=== PATIENT | male | born 1970 | race Caucasian/White ===

== ENCOUNTER 2017-01-17 15:05 | Emergency (ER) | payer MEDICAID ==
[~2017-01-17] VITALS: Ht 170.2 cm; Wt 99.8 kg
[2017-01-17 15:21] VITALS: BP 155/102
--- NOTE | 2017-01-17 16:20 | NUR ---
PT AMBULATED TO BED 8
--- NOTE | 2017-01-17 16:25 | NUR ---
46/M TO ED WITH C/O RIGHT ANKLE PAIN STARTING LAST NIGHT S/P ROLLING ANKLE. PAIN 8/10. PEDAL PULSES PRESENT BILAT. LUNGS CLEAR BILAT. HR EVEN AND REGULAR. AAOX4. VSS. NO SIGNS OF DISTRESS.
[2017-01-17 16:54] VITALS: BP 155/102
== END 2017-01-17 16:54 | disposition home or self-care (01) ==
LOC: MED 15:05
DX: M25.571 Pain in right ankle and joints of right foot (principal)
CPT/HCPCS: 73610; 96372; 99284

== ENCOUNTER 2017-02-19 09:13 | Inpatient (IN) | payer MEDICAID ==
[~2017-02-19] VITALS: Ht 170.2 cm; Wt 100.7 kg
[2017-02-19 09:21] VITALS: BP 154/93
--- NOTE | 2017-02-19 09:29 | NUR ---
PT TO BED 3.
--- NOTE | 2017-02-19 09:30 | NUR ---
PATIENT PRESENTS TO ED WITH C/O CHEST PAIN . PT STATES THE CHEST PAIN STARTED AT 2400, AND HAS NOT DISSIPATED . DENIES N/V/D; SKIN IS PALE/WARM/DIAPHORETIC; AAOX4 WITH EVEN AND STEADY GAIT; LUNGS CLEAR BL; HR EVEN AND REGULAR; PT DENIES ANY FEVER, SOB, OR COUGH AT THIS TIME; PATIENT STATES PAIN OF 8/10 AT THIS TIME; VSS; PATIENT POSITIONED FOR COMFORT; HOB ELEVATED; BEDRAILS UP X2; BED DOWN. ER MD MADE AWARE OF PT STATUS.
--- NOTE | 2017-02-19 09:53 | NUR ---
Ciara AT BEDSIDE.
--- NOTE | 2017-02-19 09:53 | NUR ---
Dr. Zeng evaluating patient at bedside.
[2017-02-19] MEDS ORDERED: ALUMINUM HYD/MAG/SIMETHICONE 30 ML UDC PO ONE (10:00)
[2017-02-19] MEDS ORDERED: ASPIRIN 81 MG TAB.CHEW PO ONE (10:00)
[2017-02-19] MEDS ORDERED: ONDANSETRON 4 MG/2 ML VIAL IVP ONE ×2 (10:00)
[2017-02-19] MEDS ORDERED: FAMOTIDINE 20 MG/2 ML VIAL IVP ONE (10:00)
--- NOTE | 2017-02-19 10:03 | NUR ---
X-RAY AT BEDSIDE.
--- NOTE | 2017-02-19 10:22 | NUR ---
IV ESTABLISHED, 20 G LEFT AC.
[2017-02-19 10:38] LABS: ALBUMIN 3.6 g/dL (3.4-5.0); ANION GAP 6.7 (8-16); CARBON DIOXIDE 32.3 mmol/L (21-32); CREATININE 0.8 mg/dL (0.6-1.3); TOTAL BILIRUBIN 0.6 mg/dL (0.0-1.0); TOTAL PROTEIN, SERUM 7.4 g/dL (6.4-8.2)
[2017-02-19 10:41] LABS: PARTIAL THROMBOPLASTIN TIME 25.9 secs (22-35.6); PROTHROMBIN TIME 10.5 secs (10.8-13.4)
[2017-02-19] MEDS ORDERED: POTASSIUM CHLORIDE 10 MEQ TABER PO ONE (10:50)
[2017-02-19 10:53] LABS: HEMATOCRIT 46.8 % (36-52); HEMOGLOBIN 15.4 g/dL (12.0-18.0); MEAN CORPUSCULAR HEMOGLOBIN 29 pg (27-31); MEAN CORPUSCULAR HGB CONC 33 g/dL (33-37); MEAN CORPUSCULAR VOLUME 88 fL (80-94); PLATELET COUNT (AUTO) 235 K/uL (140-450); RED BLOOD CELL COUNT(AUTO) 5.34 MIL/uL (4.20-6.10); RED CELL DISTRIBUTION WIDTH 12.7 % (11.6-13.7); WHITE BLOOD COUNT (AUTO) 6.6 K/uL (4.8-10.8)
--- NOTE | 2017-02-19 10:56 | NUR ---
MEDICATION ADMINISTERED ORDERED.
[2017-02-19 11:05] LABS: BAND % (MANUAL) 3 % (0-8); LYMPHOCYTES % (MANUAL) 25 % (20-46); MONOCYTES % (MANUAL) 11 % (5-12); NEUTROPHILS % (MANUAL) 61 (43-65)
[2017-02-19] MEDS ORDERED: LORazepam 2 MG/ML VIAL IVP ONE (11:30)
[2017-02-19] MEDS ORDERED: NACL 0.9% 1,000 ML IV ONE (11:30)
[2017-02-19] MEDS ORDERED: HYDROcodone/APAP 5/325 MG 1 TAB TAB PO PRN (11:35)
[2017-02-19] MEDS ORDERED: ONDANSETRON 4 MG/2 ML VIAL IVP PRN (11:35)
[2017-02-19] MEDS ORDERED: MORPHINE SULFATE 2 MG/ML SYR IVP PRN (11:35)
--- NOTE | 2017-02-19 11:36 | NUR ---
Patient will be admitted to care of DR. VIDAL. Admited to TELE. Will go to room 111-A. Belongings list completed. Report to MAGED BANERJEE.
[2017-02-19 11:48] VITALS: BP 140/85
--- NOTE | 2017-02-19 11:48 | NUR ---
RECEIVED PT FROM ER NURSE. PT IS AAOX4 AND SHOWS NO S/S OF DISTRESS ON ROOM AIR. PT AMB TO BED WITH STEADY GAIT. NOTED IV 20G ON THE L AC. PT SKIN IS INTACT. PT STATES NO PAIN AT THIS TIME. PT WAS EDUCATED OF HIS POC FOR TODAY AND VERBALIZED UNDERSTANDING. PT'S BED IS LOWERED WITH CALL LIGHT WITHIN REACH. WILL CONTINUE TO MONITOR.
[2017-02-19] MEDS ORDERED: LISINOPRIL 5 MG TAB PO SCH (11:52)
[2017-02-19] MEDS ORDERED: METOPROLOL 25 MG TAB PO SCH (11:53)
--- NOTE | 2017-02-19 12:15 | NUR ---
PT IS RESTING IN BED AND SHOWS NO S/S OF DISTRESS ON ROOM AIR. PT WAS GIVEN A CONSENT FORM FOR CT WITH CONTRAST PROCEDURE THAT WILL DONE LATER TODAY. PT VERBALIZED UNDERSTANDING OF PROCEDURE AND QUESTIONS ASKED. PT CALL LIGHT IS WITHIN REACH. WILL CONTINUE TO MONITOR.
[2017-02-19] MEDS: NACL 0.9% 1,000 ML IV SCH ×2 (14:11→18:41)
--- NOTE | 2017-02-19 15:15 | NUR ---
PT IS BEING SEEN BY SCHEDULE ANNOUNCER. PT IS TOLERATING PROCEDURE WELL. PT SHOWS NO S/S OF DISTRESS ON ROOM AIR. WILL CONTINUE TO MONITOR.
[2017-02-19 16:00] VITALS: BP 133/78
--- NOTE | 2017-02-19 16:45 | NUR ---
PT LEFT UNIT IN STABLE CONDITION TO CT SCAN PROCEDURE.
[2017-02-19] MEDS ORDERED: HEPARIN PER PHARMACY MC PRN (16:50)
[2017-02-19] MEDS ORDERED: hePARIN / DEXT 5% PREMIX 250 ML IV SCH (16:50)
--- NOTE | 2017-02-19 17:15 | NUR ---
PT IS BACK ON UNIT. PT IS AAOX4 AND SHOWS NO S/S OF DISTRESS ON ROOM AIR.
--- NOTE | 2017-02-19 17:45 | NUR ---
DR YAO WAS NOTIFIED OF CT SCAN RESULTS. WILL AWAIT ORDERS.
--- NOTE | 2017-02-19 18:00 | NUR ---
PT BEING SEEN BY [employer] TECH.
--- NOTE | 2017-02-19 18:25 | NUR ---
RECEIVED ORDERS FOR HEPARIN DRIP PROTOCOL FOR PT. AWAITING FOR IT TO BE VERIFIED BY PHARMACY.
--- NOTE | 2017-02-19 19:00 | NUR ---
PHARMACY EMPLOYEE CAME ONTO UNIT TO CLARIFY HEPARIN DRIP PROTOCOL. WILL ENDORSED NEW ORDERS TO FULFILLMENT COORDINATOR NURSE.
--- NOTE | 2017-02-19 19:20 | NUR ---
PT IS RESTING IN BED WATCHING TV.THE BED IS LOWERED WITH THE CALL LIGHT IN REACH. PT STATES HE IS HUNGRY. SPOKE WITH DR RODRIGUES AND WAS ORDERED CARDIAC DIET FOR DINNER. PT IS AWARE AND IS COOPERATIVE. PT SHOWS NO S/S OF DISTRESS ON ROOM AIR. PT DENIES PAIN. GAVE REPORT TO NIGHT NURSE AT BEDSIDE. ENDORSED TO NIGHT NURSE TO INITIATE THE HEPARIN DRIP PROTOCOL PER MD AND PHARMACY ORDERS. ALSO, ENDORSED TO ORDER PTT Q6H AFTER THE INITIAL HEPARIN DOSE UNTIL TWO CONSECUTIVE THERAPEUTIC PTT LEVELS ARE INDICATED. NIGHT NURSE VERBALIZED UNDERSTANDING. PT ENDORSED IN STABLE CONDITION.
--- NOTE | 2017-02-19 19:30 | NUR ---
RECEIVED REPORT FROM AM NURSE. PT RESTING IN BED, AOX4, ABLE TO VERBALIZE NEEDS. PT DENIES CHEST PAIN, SOB OR S/S OF ACUTE DISTRESS. PT C/O HEADACHE. SEE PAIN ASSESSMENT. WILL MEDICATE ORDERED. MOLD CARPENTER IN PLACE. IV ACCESS ASYMPTOMATIC, PATENT AND INTACT. IVF INFUSING WELL. DISCUSSED AND REVIEWED PLAN OF CARE WITH PT. INSTRUCTED PT TO COLLECT URINE SAMPLE WHEN ABLE. PT VERBALIZED UNDERSTANDING. SAFETY MEASURES ENSURED. CALL LIGHT WITHIN REACH. WILL CONTINUE TO MONITOR.
[2017-02-19 20:00] VITALS: BP 121/76
[2017-02-19] MEDS: METOPROLOL 25 MG TAB PO SCH (20:50)
[2017-02-19] MEDS: SIMVASTATIN 10 MG TAB PO SCH (20:52)
[2017-02-19] MEDS ORDERED: SIMVASTATIN 10 MG TAB PO SCH (21:00)
[2017-02-19] MEDS: hePARIN / DEXT 5% PREMIX 250 ML IV SCH (21:05)
--- NOTE | 2017-02-19 21:05 | NUR ---
ADMINISTERED DUE MEDICATIONS WITH EDUCATION. PT VERBALIZED UNDERSTANDING. HEPARIN DRIP STARTED WITH 2 RN VERIFICATION. IV INFUSING WELL. ATTEMPTED TO INSERT NEW IV TO CONTINUE MAINTENANCE FLUID. UNSUCCESSFUL AFTER 2 ATTEMPTS. WILL ASK CHARGE NURSE TO INSERT NEW IV. CONDITION STABLE. ALL NEEDS MET. SAFETY MEASURES ENSURED. CALL LIGHT WITHIN REACH.
--- NOTE | 2017-02-19 22:30 | NUR ---
NEW IV 22G STARTED ON LEFT WRIST BY CHARGE NURSE. PT TOLERATED WELL. MAINTENANCE FLUIDS CONTINUED AND INFUSING WELL.
--- NOTE | 2017-02-19 23:00 | NUR ---
OBTAINED URINE SAMPLE FROM PT, WILL SENT TO LAB
[2017-02-20] VITALS: BP 109/73
--- NOTE | 2017-02-20 | NUR ---
PT RESTING COMFORTABLY. CONDITION STABLE. ALL NEEDS MET. BOTH HEPARIN DRIP AND IVF INFUSING WELL. SAFETY MEASURES ENSURED. CALL LIGHT WITHIN REACH.
[2017-02-20 01:06] LABS: APPEARANCE,URINE SL CLOUDY (CLEAR); BILIRUBIN,URINE NEGATIVE (NEGATIVE); BLOOD, URINE 1+ (NEGATIVE); COLOR,URINE YELLOW (YELLOW); LEUKOCYTE ESTERASE ,URINE NEGATIVE (NEGATIVE); NITRITE, URINE NEGATIVE (NEGATIVE); PH,URINE 5.5 (5.0-9.0); PROTEIN,URINE NEGATIVE (NEGATIVE); UGLUCOSE NEGATIVE (NEGATIVE); UROBILINOGEN,URINE 0.2 EU/dL (0.2 - 1)
[2017-02-20 01:12] LABS: AMPHETAMINE, URINE NEG. ng/ml (NEG <=1000); BARBITURATE, URINE NEG. ng/ml (NEG <=200); BENZODIAZEPINE, URINE NEG. ng/mL (NEG <=200); CANNABINOID, URINE NEG. ng/mL (NEG <=50); COCAINE, URINE NEG. ng/mL (NEG <=300); OPIATE, URINE NEG. ng/mL (NEG <=2000); PHENCYCLIDINE SCREEN,URINE NEG. ng/mL (NEG <=25)
[2017-02-20] MEDS: NACL 0.9% 1,000 ML IV SCH ×4 (01:50→23:17)
[2017-02-20 03:04] LABS: BACTERIA,URINE None Seen /HPF (None Seen); RBC,URINE 0-5 (RARE) /HPF (0-5); SQUAMOUS EPITHELIAL CELL,UR None Seen /LPF (0-3 (FEW)); WBC,URINE NONE SEEN /HPF (0-5)
[2017-02-20 03:29] LABS: ALBUMIN 3.4 g/dL (3.4-5.0); ANION GAP 6.2 (8-16); CALCIUM 8.5 mg/dL (8.5-10.1); CARBON DIOXIDE 34.7 mmol/L (21-32); CREATININE 0.9 mg/dL (0.6-1.3); MAGNESIUM 1.8 mg/dL (1.8-2.4); PHOSPHORUS 4.8 mg/dL (2.5-4.9); POTASSIUM 3.9 mmol/L (3.5-5.1); TOTAL BILIRUBIN 0.7 mg/dL (0.0-1.0); TOTAL PROTEIN, SERUM 7.1 g/dL (6.4-8.2)
--- NOTE | 2017-02-20 03:48 | NUR ---
PT RESTING COMFORTABLY. HEP DRIP AND IVF INFUSING WELL. ALL NEEDS MET. SAFETY MEASURES ENSURED. CALL LIGHT WITHIN REACH.
[2017-02-20 04:00] VITALS: BP 106/64
[2017-02-20] MEDS: hePARIN / DEXT 5% PREMIX 250 ML IV SCH ×2 (04:10→12:38)
--- NOTE | 2017-02-20 04:10 | NUR ---
APTT 36.5, HEPARIN DRIP ADJUSTED ORDERED WITH 2 RN VERIFICATION. PT EDUCATED, PT VERBALIZED UNDERSTANDING. HEP DRIP AND IVF INFUSING WELL. ALL NEEDS MET. SAFETY MEASURES ENSURED.
--- NOTE | 2017-02-20 07:18 | NUR ---
RECEIVED PT REPORT AT BEDSIDE FROM NIGHT NURSE. PT IS AAOX4 AND SHOWS NO S/S OF DISTRESS ON RA. PT SKIN IS INTACT. NOTED IV ON THE L AC WITH HEPARIN DRIP AND L FA WITH IVF'S RUNNING. PT DENIES PAIN AND SOB. NOTED URINAL WITH 500CC'S WITH CLEAR YELLOW URINE. PT IS ON TELE MONITORING. PT WAS EDUCATED ON POC FOR TODAY. PT VERBALIZED UNDERSTANDING FOR CARE. PT BED IS LOWERED WITH CALL LIGHT WITHIN REACH.
--- NOTE | 2017-02-20 07:18 | NUR ---
ENDORSED PLAN OF CARE TO AM NURSE. CONDITION STABLE.
[2017-02-20 08:41] VITALS: BP 140/84
[2017-02-20] MEDS: LISINOPRIL 5 MG TAB PO SCH (08:44)
[2017-02-20] MEDS: METOPROLOL 25 MG TAB PO SCH ×2 (08:44→20:50)
[2017-02-20] MEDS: ASPIRIN 81 MG TAB.CHEW PO SCH (08:44)
--- NOTE | 2017-02-20 08:44 | NUR ---
ADMINISTERED SCHEDULED MEDICATIONS. PT TOLERATED ACTIVITY WELL. PT DENIES PAIN AND SOB. WILL CONTINUE TO MONITOR.
--- NOTE | 2017-02-20 09:16 | NUR ---
PATIENT HAS BEEN SCREENED AND CATEGORIZED MODERATE NUTRITION RISK. PATIENT WILL BE SEEN WITHIN 3-5 DAYS OF ADMISSION. 02/21/17-02/23/[address]
[2017-02-20] MEDS ORDERED: PANTOPRAZOLE 40 MG INJ VIAL IVP SCH (10:28)
--- NOTE | 2017-02-20 11:15 | NUR ---
PT SHOWS NO S/S OF DISTRESS ON RA. PT NEEDS ARE MET. PT HAS BED LOWERED WITH CALL LIGHT WITHIN REACH.
[2017-02-20 12:00] VITALS: BP 103/64
--- NOTE | 2017-02-20 12:38 | NUR ---
PT PTT IS 38.2 AND PER HEPARIN DRIP PROTOCOL WILL NEED TO ADMINISTER HEPARIN BOLUS OF 2,400 UNITS AND TITRATE DRIP TO A RATE OF 12.8 ML/HR. HEPARIN DRIP PROTOCOL WAS FOLLOWED THROUGH. IV INFUSING WELL. WILL CONTINUE TO MONITOR.
[2017-02-20] MEDS ORDERED: REGADENOSON 0.4 MG/5 ML SYR IV ONE (12:50)
--- NOTE | 2017-02-20 13:08 | NUR ---
PT WAS SEEN BY MD PENN. DISCONTINUED HEPARIN DRIP. PT SHOWS NO S/S OF DISTRESS ON ROOM AIR AND DENIES PAIN AND SOB.
--- NOTE | 2017-02-20 15:25 | NUR ---
PT STATES HE WOULD LIKE TO GIVE HIMSELF A BED BATH. PT WAS GIVEN SUPPLIES. PT SHOWS NO S/S OF DISTRESS WILL CONTINUE TO MONITOR.
[2017-02-20 16:00] VITALS: BP 146/79
--- NOTE | 2017-02-20 17:58 | NUR ---
PT IS IN BED AND STATED HE HAD A HEADACHE OF 6/10. PT WAS GIVEN PRN PAIN MEDICATION. WILL CONTINUE TO MONITOR.
--- NOTE | 2017-02-20 18:15 | NUR ---
PT FAMILY IS AT BEDSIDE AND SHOWS NO S/S OF DISTRESS ON ROOM AIR. PT STATED PAIN IS 3/10 AND IS COMFORTABLE. WILL CONTINUE TO MONITOR.
--- NOTE | 2017-02-20 19:15 | NUR ---
GAVE REPORT TO NIGHT NURSE AT BEDSIDE. PT ENDORSED IN STABLE CONDITION.
--- NOTE | 2017-02-20 19:30 | NUR ---
RECEIVED REPORT FROM AM NURSE. PT RESTING IN BED, AOX4, ABLE TO VERBALIZE NEEDS. PT DENIES CHEST PAIN, SOB OR S/S OF ACUTE DISTRESS. PASTORAL COUNSELOR IN PLACE. IV ACCESS ASYMPTOMATIC, PATENT AND INTACT. IVF INFUSING WELL. DISCUSSED AND REVIEWED PLAN OF CARE WITH PT. PT EDUCATED TO BE CLEAR LIQUID UNTIL MIDNIGHT AND NOTHING TO EAT OR DRINK AT MIDNIGHT. PT VERBALIZED UNDERSTANDING. SAFETY MEASURES ENSURED. CALL LIGHT WITHIN REACH. WILL CONTINUE TO MONITOR.
[2017-02-20 20:00] VITALS: BP 104/58
[2017-02-20] MEDS: SIMVASTATIN 10 MG TAB PO SCH (20:48)
--- NOTE | 2017-02-20 20:48 | NUR ---
HELD METOPROLOL DUE TO BP 104/58, HR 64 AT THIS TIME AND DUE TO PT GOING INTO [facility] [place] AT TIMES LAST NIGHT. REMAINING DUE MED ADMINISTERED WITH EDUCATION. PT VERBALIZED UNDERSTANDING. PT C/O FEELING GAS TRAPPED IN HIS STOMACH AND ONLY HAVING SMALL STOOLS THE PAST 3 DAYS. WILL NOTIFY MD. PT EDUCATED TO AMBULATE TOLERATED. SAFETY MEASURES ENSURED. CALL LIGHT WITHIN REACH.
--- NOTE | 2017-02-20 21:45 | NUR ---
PT OBSERVED AMBULATING WELL INDEPENDENTLY WITH STEADY GAIT.
[2017-02-21] VITALS: BP 109/54
--- NOTE | 2017-02-21 01:13 | NUR ---
PT SLEEPING COMFORTABLY. CONDITION STABLE. ALL NEEDS MET. SAFETY MEASURES ENSURED. CALL LIGHT WITHIN REACH. WILL CONTINUE TO MONITOR.
[2017-02-21 04:00] VITALS: BP 100/60
--- NOTE | 2017-02-21 04:00 | NUR ---
CONDITION STABLE. PT SLEEPING. ALL NEEDS MET. SAFETY MEASURES ENSURED. CALL LIGHT WITHIN REACH.
[2017-02-21] MEDS: NACL 0.9% 1,000 ML IV SCH ×3 (05:55→22:00)
[2017-02-21 06:14] LABS: BASOPHILS # (AUTO) 0.3 K/uL (0.00-0.22); BASOPHILS % (AUTO) 4.1 % (0.0-2.0); EOSINOPHILS # (AUTO) 0.3 K/uL (0-0.4); EOSINOPHILS % (AUTO) 3.8 % (0.0-4.0); HEMOGLOBIN 13.8 g/dL (12.0-18.0); LYMPHOCYTES # (AUTO) 1.8 K/uL (2.0-11.5); LYMPHOCYTES % (AUTO) 21.9 % (20.5-51.1); MEAN CORPUSCULAR HEMOGLOBIN 30 pg (27-31); MEAN CORPUSCULAR HGB CONC 34 g/dL (33-37); MEAN CORPUSCULAR VOLUME 89 fL (80-94); MONOCYTES # (AUTO) 0.7 K/uL (0.8-1.0); MONOCYTES % (AUTO) 8.6 % (1.7-9.3); NEUTROPHILS # (AUTO) 5.1 K/uL (1.8-7.7); NEUTROPHILS % (AUTO) 61.6 % (42.2-75.2); PLATELET COUNT (AUTO) 191 K/uL (140-450); RED BLOOD CELL COUNT(AUTO) 4.62 MIL/uL (4.20-6.10); RED CELL DISTRIBUTION WIDTH 12.7 % (11.6-13.7); WHITE BLOOD COUNT (AUTO) 8.2 K/uL (4.8-10.8)
[2017-02-21 06:35] LABS: ANION GAP 10.6 (8-16); CALCIUM 8.1 mg/dL (8.5-10.1); CREATININE 0.8 mg/dL (0.6-1.3); POTASSIUM 3.6 mmol/L (3.5-5.1)
[2017-02-21 06:39] LABS: PARTIAL THROMBOPLASTIN TIME 24.6 secs (22-35.6); PROTHROMBIN TIME 9.7 secs (10.8-13.4)
[2017-02-21 06:55] LABS: MAGNESIUM 1.8 mg/dL (1.8-2.4); PHOSPHORUS 4.1 mg/dL (2.5-4.9)
--- NOTE | 2017-02-21 07:03 | NUR ---
CONDITION STABLE. ENDORSED PLAN OF CARE TO AM NURSE.
--- NOTE | 2017-02-21 07:04 | NUR ---
RECEIVED CARE OF PT FROM [employer] MAIL CARRIER NURSE AT BEDSIDE. PT IS A&OX4. PT HAS L AC 20 G NS@140. PT HAS NO COMPLAINTS AT THIS TIME. PT IS AMBULATORY. PT DENIES CHEST PAIN AT THIS TIME. CALL LIGHT WITHIN REACH. WILL CONTINUE TO MONITOR.
[2017-02-21 08:00] VITALS: BP 140/88
--- NOTE | 2017-02-21 08:30 | NUR ---
SPOKE TO DR REGARDING CANCELLED LEXISCAN. IS TO PUT IN DIET ORDER.
[2017-02-21] MEDS: ATORVASTATIN 20 MG TAB PO SCH (09:23)
[2017-02-21] MEDS: PANTOPRAZOLE 40 MG INJ VIAL IVP SCH (09:23)
[2017-02-21] MEDS: METOPROLOL 25 MG TAB PO SCH ×2 (09:24→20:34)
[2017-02-21] MEDS: LISINOPRIL 5 MG TAB PO SCH (09:24)
[2017-02-21] MEDS: ASPIRIN 81 MG TAB.CHEW PO SCH (09:24)
--- NOTE | 2017-02-21 11:00 | NUR ---
PT TOOK A WALK IN THE HALLWAY. TOLERATED WELL. DENIED ANY CHEST PAIN. WENT BACK TO ROOM. CALL LIGHT WITHIN REACH. WILL CONTINUE TO MONITOR.
[2017-02-21 12:00] VITALS: BP 112/68
--- NOTE | 2017-02-21 13:50 | NUR ---
PT IS SPEAKING ON THE PHONE. NO COMPLAINTS AT THIS TIME. CALL LIGHT WITHIN REACH. WILL CONTINUE TO MONITOR.
[2017-02-21] MEDS ORDERED: REGADENOSON 0.4 MG/5 ML SYR IV SCH (14:45)
--- NOTE | 2017-02-21 15:00 | NUR ---
PT IS RESTING IN BED COMFORTABLY. CALL LIGHT WITHIN REACH. WILL CONTINUE TO MONITOR. PT VERBALIZED UNDERSTANDING OF PLAN OF CARE.
[2017-02-21 16:00] VITALS: BP 116/76
--- NOTE | 2017-02-21 17:39 | NUR ---
PT TOOK A WALK IN THE HALLWAY AGAIN. TOLERATED WELL. CALL LIGHT WITHIN REACH. WILL CONTINUE TO MONITOR.
--- NOTE | 2017-02-21 19:23 | NUR ---
ENDORSED CARE OF PT TO BITUMEN PLANT OPERATOR NURSE. PT IN STABLE CONDITION.
--- NOTE | 2017-02-21 19:25 | NUR ---
RECEIVED REPORTS FROM DAY RN. PATIENT IS SITTING UP IN BED, IS AT BEDSIDE. NO S/S OF ACUTE DISTRESS NOTED, PATIENT DENIES PAIN AT THIS TIME. CALL LIGHT WITHIN REACH, SAFETY MEASURE ENSURED, WILL CONTINUE TO MONITOR.
[2017-02-21 20:00] VITALS: BP 111/68
[2017-02-21] MEDS: SIMVASTATIN 10 MG TAB PO SCH (20:34)
--- NOTE | 2017-02-21 23:30 | NUR ---
PATIENT ASLEEP IN BED, EASY TO AROUSE. NO S/S OF ACUTE DISTRESS NOTED. PATIENT DENIES PAIN. CALL LIGHT WITH IN REACH, SAFETY MEASURE ENSURED, WILL CONTINUE TO MONITOR.
[2017-02-22] VITALS: BP 119/70
--- NOTE | 2017-02-22 02:16 | NUR ---
PATIENT STILL ASLEEP. NO S/S OF ACUTE DISTRESS NOTED, RESPIRATION EVEN AND UNLABORED, CALL LIGHT WITHIN REACH, WILL CONTINUE TO MONITOR.
[2017-02-22 04:00] VITALS: BP 122/85
--- NOTE | 2017-02-22 04:15 | NUR ---
PATIENT ASLEEP IN BED, EASY TO AROUSE, NO S/S OF ACUTE DISTRESS NOTED, RESPIRATION EVEN AND UNLABORED, DENIES PAIN AT THIS TIME, CALL LIGHT WITHIN REACH, WILL CONTINUE TO MONITOR.
--- NOTE | 2017-02-22 05:30 | NUR ---
PT STILL SLEEPING, RESPIRATION EVEN AND UNLABORED, SAFETY MEASURE ENSURED, CALL LIGHT WITHIN REACH, WILL CONTINUE TO MONITOR.
[2017-02-22 06:12] LABS: BASOPHILS # (AUTO) 0.2 K/uL (0.00-0.22); BASOPHILS % (AUTO) 1.6 % (0.0-2.0); EOSINOPHILS # (AUTO) 0.2 K/uL (0-0.4); EOSINOPHILS % (AUTO) 2.3 % (0.0-4.0); HEMATOCRIT 41.6 % (36-52); HEMOGLOBIN 14.1 g/dL (12.0-18.0); LYMPHOCYTES # (AUTO) 2.2 K/uL (2.0-11.5); LYMPHOCYTES % (AUTO) 22.1 % (20.5-51.1); MEAN CORPUSCULAR HEMOGLOBIN 30 pg (27-31); MEAN CORPUSCULAR HGB CONC 34 g/dL (33-37); MEAN CORPUSCULAR VOLUME 89 fL (80-94); MONOCYTES # (AUTO) 0.7 K/uL (0.8-1.0); MONOCYTES % (AUTO) 7.4 % (1.7-9.3); NEUTROPHILS # (AUTO) 6.6 K/uL (1.8-7.7); NEUTROPHILS % (AUTO) 66.6 % (42.2-75.2); PLATELET COUNT (AUTO) 188 K/uL (140-450); RED CELL DISTRIBUTION WIDTH 12.7 % (11.6-13.7); WHITE BLOOD COUNT (AUTO) 9.9 K/uL (4.8-10.8)
[2017-02-22 06:29] LABS: ANION GAP 10.9 (8-16); CALCIUM 8.5 mg/dL (8.5-10.1); CARBON DIOXIDE 30.9 mmol/L (21-32); CREATININE 0.8 mg/dL (0.6-1.3); POTASSIUM 3.8 mmol/L (3.5-5.1)
[2017-02-22 06:54] LABS: MAGNESIUM 1.7 mg/dL (1.8-2.4); PHOSPHORUS 4.5 mg/dL (2.5-4.9)
--- NOTE | 2017-02-22 07:15 | NUR ---
ENDORSED PLAN OF CARE TO DAY RN. PATIENT IS IN STABLE CONDITION
--- NOTE | 2017-02-22 07:20 | NUR ---
REPORT RECEIVED FROM BOWL ATTENDANT, PT SLEEPING QUIETLY, AROUSES EASILY BY VOICE, RESP EVEN UNLABORED ON RA IN NAD, PT DENIES PAIN OR DISCOMFORT, PLAN OF CARE REVIEWED, PT AWARE OF NPO FOR STRESS TEST TODAY, NO IMMEDIATE NEEDS IDENTIFIED, PT REMAINS ON DEPUTY BUILDING GUARD, SIDE RAILS UP, BED LOCKED IN LOW POSITION, CALL WHITE WITHIN REACH, WILL CONTINUE TO MONITOR.
[2017-02-22 08:00] VITALS: BP 112/58
[2017-02-22] MEDS: ATORVASTATIN 20 MG TAB PO SCH (08:20)
[2017-02-22] MEDS: PANTOPRAZOLE 40 MG INJ VIAL IVP SCH (08:20)
[2017-02-22] MEDS: METOPROLOL 25 MG TAB PO SCH (08:20)
[2017-02-22] MEDS: ASPIRIN 81 MG TAB.CHEW PO SCH (08:21)
[2017-02-22] MEDS: LISINOPRIL 5 MG TAB PO SCH (08:21)
--- NOTE | 2017-02-22 09:01 | NUR ---
DR VIDAL MADE AWARE OF MAG LEVEL 1.7.
--- NOTE | 2017-02-22 11:53 | NUR ---
PT WALKING AROUND IN HALLWAY WITH STEADY GAIT, DENIES SOB OR PAIN, RESP EVEN UNLABORED, SKIN WARM DRY COLOR WNL, STRESS TEST AROUND 1330 PER CARDIOLOGY AND NM DEPARTMENT, PT UPDATED WITH PLAN, PT REMAINS ON SPECIAL ASSEMBLIES SUPERVISOR, WILL CONTINUE TO MONITOR.
[2017-02-22 12:05] VITALS: BP 106/53
--- NOTE | 2017-02-22 13:22 | NUR ---
STRESS TEST CANCELED PER CARDIOLOGY STAFF, DR RODRIGUES AND DR LAGUNA ALREADY AWARE.
[2017-02-22] MEDS: NACL 0.9% 1,000 ML IV SCH (13:23)
--- NOTE | 2017-02-22 14:20 | NUR ---
DR LAGUNA AT BEDSIDE FOR EVAL, OK TO EAT, SANDWITCH REQUESTED FROM KITCHEN. PT AWAKE ALERT, AMBULATING WELL WITH STEADY GAIT IN NAD, CRACKERS AND JUICE PROVIDED AT THIS TIME.
--- NOTE | 2017-02-22 15:00 | NUR ---
PT CAORL MERRITT, DENIES VOMITING OR NAUSEA.
[2017-02-22 16:03] VITALS: BP 127/80
--- NOTE | 2017-02-22 16:10 | NUR ---
PT GOING HOME AMA, RISKS EXPLAINED TO PT BY DR LAGUNA, PT SIGNED AMA FORM, PT TO F/U AT CLINIC IN [place] ON SATURDAY AT 3PM, ADDRESS AND PHONE NUMBER PROVIDED TO PT BY DR LAGUNA, PT VERBALIZED FULL UNDERSTANDING, IV DC'D, CATH TIP INTACT, PT UP OUT OF BED WITHOUT PROBLEM, LEAVING AMA HOME NOW WITH .
== END 2017-02-22 16:10 | disposition left against medical advice (07) | DRG 198 ==
LOC: MED 09:13 → MTU 11:36
PROVIDERS: ADMIT Family Medicine; ATTEND Family Medicine
DX: I24.9 Acute ischemic heart disease, unspecified (principal); I10 Essential (primary) hypertension; F10.239 Alcohol dependence with withdrawal, unspecified; E87.6 Hypokalemia; R74.0 Nonspecific elevation of levels of transaminase and lactic acid dehydrogenase [LDH]; F14.90 Cocaine use, unspecified, uncomplicated; Z53.21 Procedure and treatment not carried out due to patient leaving prior to being seen by health care provider; Z87.891 Personal history of nicotine dependence; Y90.9 Presence of alcohol in blood, level not specified
CPT/HCPCS: 36415; 71010; 71260; 74160; 76700; 80048; 80053; 80305; 81001; 83036; 83690; 83735; 83880; 84100; 84443; 84484; 85025; 85610; 85730; 87081; 93005; 96374; 96375; 99285; C9113; G0482; J1644; J2270; J2405; J2785; J3490; J7030; Q0092; Q9967

== ENCOUNTER 2018-01-04 19:42 | Inpatient (IN) | payer MEDICAID ==
[~2018-01-04] VITALS: Ht 170.2 cm; Wt 79.4 kg
--- NOTE | 2018-01-04 19:45 | NUR ---
47/M came in w c/o 03/11 SUBSTERNAL CHEST PAIN SINCE THIS MORNING. PT STATES HE WAS DRINKING ALCOHOL WHEN CP STARTED. ALSO C/O "STIFF TONGUE", DENIES ANY SOB, N/V. SKIN IS WARM AND DRY. HEART SOUNDS REGULAR. ALL LUNG SOUNDS CBTA, 16 RR EVEN AND UNLABORED. DENIES PMH/RX/OTC Addendum: 01/04/18 at 2017 by KYLEE PT PLACED ON MONITOR. ADILIA GRACE MADE AWARE OF PT STATUS
--- NOTE | 2018-01-04 19:45 | NUR ---
PT AMBULATED TO BED 10
[2018-01-04 19:52] VITALS: BP 155/101
[2018-01-04] MEDS ORDERED: NACL 0.9% 1,000 ML IV SCH ×2 (20:16→22:53)
[2018-01-04] MEDS ORDERED: ONDANSETRON 4 MG/2 ML VIAL IVP ONE (20:20)
[2018-01-04] MEDS ORDERED: FAMOTIDINE 20 MG/2 ML VIAL IVP ONE (20:20)
[2018-01-04] MEDS ORDERED: MORPHINE SULFATE 2 MG/ML SYR IVP ONE (20:20)
[2018-01-04] MEDS ORDERED: MORPHINE SULFATE 4 MG/ML SYR ONE (20:25)
--- NOTE | 2018-01-04 20:38 | NUR ---
PT TAKEN TO CT/XRAY
--- NOTE | 2018-01-04 20:38 | NUR ---
Jrody dent in [facility] - 01/04/18 at 2039 by KALI PT TAKEN TO RADIOLOGY
[2018-01-04 20:43] LABS: APPEARANCE,URINE CLEAR (CLEAR); BILIRUBIN,URINE NEGATIVE (NEGATIVE); BLOOD, URINE TRACE-I (NEGATIVE); COLOR,URINE YELLOW (YELLOW); LEUKOCYTE ESTERASE ,URINE NEGATIVE (NEGATIVE); NITRITE, URINE NEGATIVE (NEGATIVE); PH,URINE 8.5 (5.0-9.0); UGLUCOSE NEGATIVE (NEGATIVE)
[2018-01-04 20:43] LABS: BASOPHILS % (AUTO) 0.2 % (0.0-2.0); EOSINOPHILS # (AUTO) 0.2 K/uL (0-0.4); EOSINOPHILS % (AUTO) 1.6 % (0.0-4.0); HEMATOCRIT 51.6 % (36-52); HEMOGLOBIN 17.6 g/dL (12.0-18.0); LYMPHOCYTES # (AUTO) 3.8 K/uL (2.0-11.5); LYMPHOCYTES % (AUTO) 26.1 % (20.5-51.1); MEAN CORPUSCULAR HEMOGLOBIN 30 pg (27-31); MEAN CORPUSCULAR HGB CONC 34 g/dL (33-37); MEAN CORPUSCULAR VOLUME 87.9 fL (80-94); MONOCYTES # (AUTO) 1.7 K/uL (0.8-1.0); NEUTROPHILS # (AUTO) 8.9 K/uL (1.8-7.7); NEUTROPHILS % (AUTO) 60.4 % (42.2-75.2); PLATELET COUNT (AUTO) 357 K/uL (140-450); RED BLOOD CELL COUNT(AUTO) 5.87 MIL/uL (4.20-6.10); RED CELL DISTRIBUTION WIDTH 13.8 % (11.6-13.7); WHITE BLOOD COUNT (AUTO) 14.7 K/uL (4.8-10.8)
[2018-01-04 20:57] LABS: MONOCYTES % (AUTO) 11.7 % (1.7-9.3)
[2018-01-04 21:00] LABS: RBC,URINE 3-10 (FEW) /HPF (0-5); WBC,URINE 0-5 (RARE) /HPF (0-5)
[2018-01-04 21:03] LABS: PROTHROMBIN TIME 11.6 secs (10.8-13.4)
[2018-01-04 21:04] LABS: ALBUMIN 4.3 g/dL (3.4-5.0); ANION GAP 14.6 (8-16); CREATININE 1.1 mg/dL (0.7-1.3); TOTAL BILIRUBIN 0.7 mg/dL (0.0-1.0)
--- NOTE | 2018-01-04 21:04 | NUR ---
PT RETURN FROM RAD
[2018-01-04 21:05] LABS: POTASSIUM 2.6 mmol/L (3.5-5.1)
[2018-01-04] MEDS ORDERED: MORPHINE SULFATE 4 MG/ML SYR IVP ONE (21:40)
[2018-01-04] MEDS ORDERED: NITROGLYCERIN 2% 1 GM PKT TP ONE (21:40)
[2018-01-04] MEDS ORDERED: NITROGLYCERIN 0.4 MG TAB SL ONE (21:40)
[2018-01-04] MEDS ORDERED: ASPIRIN 325 MG TAB PO ONE (21:40)
[2018-01-04] MEDS ORDERED: ENOXAPARIN 80 MG/0.8 ML SYR SUBQ ONE (21:45)
[2018-01-04] MEDS ORDERED: POTASSIUM CHLORIDE 10 MEQ TABER PO ONE (21:55)
--- NOTE | 2018-01-04 22:07 | NUR ---
Dr. Mills evaluating patient at bedside.
--- NOTE | 2018-01-04 22:30 | NUR ---
DENIES ANY CHEST PAIN AT THIS TIME
--- NOTE | 2018-01-04 22:37 | NUR ---
Patient will be admitted to [facility]. Admited to TELE. Will go to room 112A. Belongings list completed. BEDSIDE Report to GERMAINE LYNNE.
[2018-01-04] MEDS ORDERED: MORPHINE SULFATE 4 MG/ML SYR IVP PRN (22:55)
[2018-01-04] MEDS ORDERED: DOCUSATE SODIUM 100 MG GELCAP PO PRN (22:55)
[2018-01-04] MEDS ORDERED: ONDANSETRON 4 MG/2 ML VIAL IM/IVP PRN (22:55)
[2018-01-04] MEDS ORDERED: HYDROcodone/APAP 7.5/325 MG 1 TAB PO PRN (22:55)
--- NOTE | 2018-01-04 23:00 | NUR ---
ADMITTED THIS 47 YEAR OLD MALE FROM ER PER MARY WITH CC OF EPIGASTRIC PAIN, NAUSEA AND VOMITING, AMBULATORY TO BED WITH STEADY GAIT, ASSESSMENT DONE, PAIN 7/10 AT THIS TIME, WILL MEDICATE PRN, VITAL SIGNS TAKEN, ST ON TELE, NO SOB NOTED, SKIN INTACT, HX OBTAINED VIA [employer] EXTENSION ASSOCIATE, ORIENTED TO ROOM AND CALL LIGHT, PLAN OF CARE DISCUSSED, CALL LIGHT WITHIN REACH.
[2018-01-04 23:20] VITALS: BP 137/96
[2018-01-04] MEDS ORDERED: NITROGLYCERIN 0.4 MG TAB SL PRN (23:20)
[2018-01-04] MEDS: ASPIRIN 81 MG TAB.CHEW PO SCH (23:20)
[2018-01-04] MEDS: ACETAMINOPHEN 325 MG TAB PO PRN (23:36)
[2018-01-04 23:45] LABS: AMYLASE 81 U/L (25-115); CHOL/HDL RATIO 3.5 (1-4.5); FREE T4 (FREE THYROXINE) 1.05 ng/dL (0.76-1.46); HDL CHOLESTEROL 45 mg/dL (40-60); LDL (CALC) 73 mg/dL (60-100); LIPASE 100 U/L (73-393); MAGNESIUM 1.3 mg/dL (1.8-2.4); PHOSPHORUS 3.3 mg/dL (2.5-4.9); THYROID STIMULATING HORMONE 1.17 uIU/mL (0.34-3.74); TRIGLYCERIDES 205 mg/dL (30-150)
[2018-01-04] MEDS ORDERED: PNEUMOCOCCAL VACCINE 23 MCG/0.5 ML VIAL IMVAC PRN (23:55)
[2018-01-05] MEDS ORDERED: LORazepam 2 MG/ML VIAL IM/IVP PRN (00:30)
[2018-01-05] MEDS ORDERED: HEPARIN PER PHARMACY MC PRN ×2 (00:35→09:45)
[2018-01-05] MEDS ORDERED: DICYCLOMINE HCL LIQUID 20 MG, ALUMINUM HYD/MAG/SIMETHICONE 30 ML, LIDOCAINE VISCOUS 2% ... PO SCH ×3 (00:47)
[2018-01-05] MEDS ORDERED: LIDOCAINE VISCOUS 2% 20 ML UDC ONE (00:58)
[2018-01-05] MEDS ORDERED: ALUMINUM HYD/MAG/SIMETHICONE 30 ML UDC ONE (00:58)
[2018-01-05] MEDS ORDERED: DICYCLOMINE HCL LIQUID 10 MG/5 ML UDC ONE (01:05)
[2018-01-05] MEDS ORDERED: KCL 20 MEQ/WATER INJ PREMIX 200 ML IV SCH (01:41)
[2018-01-05] MEDS ORDERED: MAGNESIUM OXIDE 400 MG TAB PO SCH (01:42)
[2018-01-05] MEDS ORDERED: hePARIN / DEXT 5% PREMIX 250 ML IV SCH (02:00)
--- NOTE | 2018-01-05 02:04 | NUR ---
BACK FROM CT DEPARTMENT VIA WHEELCHAIR, RESUMED IVF, MAG-OX PO AND K-RIDER ADMINISTERED WITH EDUCATION PROVIDED, MONITORED CLOSELY.
[2018-01-05 04:00] VITALS: BP 119/75
--- NOTE | 2018-01-05 04:00 | NUR ---
PT SLEEPING, EASILY AROUSABLE, VITAL SIGNS STABLE, DENIES ANY PAIN, K-RIDER IVPB ON-GOING, MAINTAINED ON NPO, MONITORED CLOSELY.
[2018-01-05 04:56] LABS: BASOPHILS % (AUTO) 0.3 % (0.0-2.0); EOSINOPHILS # (AUTO) 0.3 K/uL (0-0.4); EOSINOPHILS % (AUTO) 2.7 % (0.0-4.0); HEMATOCRIT 45.1 % (36-52); HEMOGLOBIN 15.2 g/dL (12.0-18.0); LYMPHOCYTES # (AUTO) 3.1 K/uL (2.0-11.5); LYMPHOCYTES % (AUTO) 28.1 % (20.5-51.1); MEAN CORPUSCULAR HEMOGLOBIN 30 pg (27-31); MEAN CORPUSCULAR HGB CONC 34 g/dL (33-37); MEAN CORPUSCULAR VOLUME 88.1 fL (80-94); MONOCYTES % (AUTO) 9.3 % (1.7-9.3); NEUTROPHILS # (AUTO) 6.7 K/uL (1.8-7.7); NEUTROPHILS % (AUTO) 59.6 % (42.2-75.2); PLATELET COUNT (AUTO) 282 K/uL (140-450); RED BLOOD CELL COUNT(AUTO) 5.12 MIL/uL (4.20-6.10); RED CELL DISTRIBUTION WIDTH 13.8 % (11.6-13.7); WHITE BLOOD COUNT (AUTO) 11.2 K/uL (4.8-10.8)
[2018-01-05 06:12] LABS: ANION GAP 9.2 (8-16); CARBON DIOXIDE 35.3 mmol/L (21-32); CREATININE 1.1 mg/dL (0.7-1.3); POTASSIUM 3.5 mmol/L (3.5-5.1)
--- NOTE | 2018-01-05 06:20 | NUR ---
RESIDENT ON DUTY ORDERED CLEAR LIQUID DIET, PROVIDED WITH JUICE AND LEMON MASHPEE, TOLERATED WELL, MONITORED CLOSELY.
--- NOTE | 2018-01-05 07:22 | NUR ---
PT AWAKE, NO SIGNS OF DISTRESS, REPORT GIVEN TO RN AFSANEH FOR CONTINUITY OF CARE.
--- NOTE | 2018-01-05 07:30 | NUR ---
RECEIVED PT ON BED AAOX4. NO SOB NOTED. NO C/O PAIN AT THIS TIME. IV TO RT FOREARM AND RT AC PATENT AND INTACT. CHEST, DIMINISHED AIR ENTRY TO THE BASES. ABDOMEN SOFT, BOWEL SOUNDS PRESENT. NO EDEMA NOTED. INSTRUCTED PT TO CALL FOR ASSISTANCE. CALL LIGHT WITHIN REACH, PT VERBALIZED UNDERSTANDING.
[2018-01-05 08:00] VITALS: BP 112/77
--- NOTE | 2018-01-05 08:50 | NUR ---
PT CONSUMED CLEAR LIQUIDS FOR BREAKFAST, TOLERATED WELL. NO N&V NOTED.
[2018-01-05] MEDS ORDERED: chlordiazePOXIDE 25 MG CAP PO SCH (09:00)
[2018-01-05] MEDS ORDERED: LISINOPRIL 10 MG TAB PO SCH (09:00)
[2018-01-05] MEDS ORDERED: THIAMINE 100 MG TAB PO SCH (09:00)
[2018-01-05] MEDS ORDERED: FAMOTIDINE 20 MG TAB PO SCH (09:00)
[2018-01-05] MEDS ORDERED: METOPROLOL 25 MG TAB PO SCH (09:00)
[2018-01-05] MEDS ORDERED: MULTIVITAMIN 1 TAB PO SCH (09:00)
[2018-01-05] MEDS ORDERED: FOLIC ACID 1 MG TAB PO SCH (09:00)
[2018-01-05] MEDS: ASPIRIN 81 MG TAB.CHEW PO SCH (09:54)
[2018-01-05] MEDS: ACETAMINOPHEN 325 MG TAB PO PRN (09:58)
--- NOTE | 2018-01-05 10:50 | NUR ---
PT AMBULATING TO THE BATHROOM INDEPENDENT. ACTIVITY TOLERATED WELL. NO COMPLAINTS MADE.
[2018-01-05 11:55] VITALS: BP 108/62
--- NOTE | 2018-01-05 12:45 | NUR ---
PT CALLED THE NURSE AND EXPRESSED HIS DESIRE TO GO HOME AGAINST MEDICAL ADVISE. PER PT, HE FELT A LOT BETTER NOW THAN LASTNIGHT AND WANTS TO CONTINUE TO GET HIS RESTFUL SLEEP AT HIS OWN PLACE AT HOME. RISKS AND CONSEQUENCES EXPLAINED TO THE PT, VERBALIZED UNDERSTANDING. DR. AHUJA, CASTING ROOM HELPER NURSE AMISH AND RANJIT COTTER NOTIFIED.
--- NOTE | 2018-01-05 13:00 | NUR ---
PT'S CAME TO CHEF KITCHEN MANAGER PT. KIM PAPER SIGNED BY PT.
--- NOTE | 2018-01-05 13:05 | NUR ---
ARM BANDS AND IV REMOVED, CANNULA TIP INTACT.
--- NOTE | 2018-01-05 13:15 | NUR ---
PT IS DISCHARGE FROM [facility] FLOOR IN STABLE CONDITION, AMBULATORY. NO SOB NOTED. NO COMPLAINTS MADE. D/C HOME WITH .
[2018-01-05] MEDS ORDERED: SIMVASTATIN 20 MG TAB PO SCH (21:00)
[2018-01-07 06:19] LABS: FOLIC ACID 8.8 ng/mL (>3.0)
[2018-01-07 06:19] LABS: T4 (THYROXINE) 7.1 ug/dL (4.5-12.0)
== END 2018-01-05 13:15 | disposition left against medical advice (07) | DRG 770 ==
LOC: MED 19:42 → MTU 22:25
PROVIDERS: ADMIT Family Medicine; ATTEND Family Medicine
DX: F10.129 Alcohol abuse with intoxication, unspecified (principal); I21.A1 Myocardial infarction type 2; N17.0 Acute kidney failure with tubular necrosis; E87.6 Hypokalemia; E83.42 Hypomagnesemia; I10 Essential (primary) hypertension; K21.9 Gastro-esophageal reflux disease without esophagitis; M94.0 Chondrocostal junction syndrome [Tietze]; E78.5 Hyperlipidemia, unspecified; F17.210 Nicotine dependence, cigarettes, uncomplicated; R29.818 Other symptoms and signs involving the nervous system; I45.2 Bifascicular block; K29.00 Acute gastritis without bleeding; Z83.3 Family history of diabetes mellitus; Z53.21 Procedure and treatment not carried out due to patient leaving prior to being seen by health care provider
CPT/HCPCS: 36415; 70450; 71045; 80048; 80053; 81001; 82140; 82150; 82607; 82746; 83036; 83690; 83735; 83880; 84100; 84436; 84439; 84443; 84479; 84484; 85025; 85610; 85730; 86886; 86900; 86901; 87081; 93005; 93880; 96361; 96372; 96374; 96375; 96376; 99291; G0482; J1650; J2270; J2405; J3480; J3490; J7030; Q0092

== ENCOUNTER 2021-02-05 08:00 | Emergency (ER) | payer MEDICAID ==
[~2021-02-05] VITALS: Ht 167.6 cm; Wt 102.5 kg
[2021-02-05 08:10] VITALS: BP 140/89
[2021-02-05] MEDS ORDERED: OFLO10SO16 LEFT EAR (08:54)
[2021-02-05] MEDS ORDERED: NAPR-54 PO (08:54)
[2021-02-05 09:06] VITALS: BP 140/89
== END 2021-02-05 09:05 | disposition home or self-care (01) ==
LOC: MED 08:00
DX: H60.502 Unspecified acute noninfective otitis externa, left ear (principal); Z79.899 Other long term (current) drug therapy
CPT/HCPCS: 93005; 99283

== ENCOUNTER 2021-03-11 09:42 | Emergency (ER) | payer MEDICAID ==
[~2021-03-11] VITALS: Ht 170.2 cm; Wt 97.1 kg
[~2021-03-11 09:42] MED LIST: NAPR-54 PO; OFLO10SO16 LEFT EAR
[2021-03-11 09:55] VITALS: BP 104/68
[2021-03-11 11:33] VITALS: BP 104/68
== END 2021-03-11 11:33 | disposition home or self-care (01) ==
LOC: MED 09:42
DX: H92.02 Otalgia, left ear (principal); Z79.899 Other long term (current) drug therapy
CPT/HCPCS: 99281

== ENCOUNTER 2021-08-12 02:26 | Emergency (ER) | payer MEDICAID ==
[~2021-08-12] VITALS: Ht 170.2 cm; Wt 101.6 kg
[2021-08-12 02:36] VITALS: BP 118/78
--- NOTE | 2021-08-12 02:46 | NUR ---
PT TAKEN TO ER BED 03
--- NOTE | 2021-08-12 02:57 | NUR ---
GARRETT Barrientos at bedside for examination
--- NOTE | 2021-08-12 03:04 | NUR ---
chest xr at bedside
[2021-08-12] MEDS ORDERED: BENZ200C4 PO (03:39)
[2021-08-12] MEDS ORDERED: AMOX-1000 PO (03:39)
--- NOTE | 2021-08-12 03:45 | NUR ---
GARRETT ellison d/c patient.
--- NOTE | 2021-08-12 03:45 | NUR ---
Patient discharged with v/s stable. Written and verbal after care instructions given and explained. Patient alert, oriented and verbalized understanding of instructions. Ambulatory with steady gait. All questions addressed prior to discharge. ID band removed. Patient advised to follow up with PMD. Rx of augmentin 875-125 and benzonatate given. Patient educated on indication of medication including possible reaction and side effects. Opportunity to ask questions provided and answered.
[2021-08-12 03:51] VITALS: BP 118/78
== END 2021-08-12 03:45 | disposition home or self-care (01) ==
LOC: MED 02:26
DX: J20.9 Acute bronchitis, unspecified (principal); Z79.899 Other long term (current) drug therapy
CPT/HCPCS: 71045; 99283; Q0092

== ENCOUNTER 2023-08-03 09:37 | Emergency (ER) | payer MEDICAID, OTHER ==
[~2023-08-03] VITALS: Ht 170.2 cm; Wt 98.0 kg
[~2023-08-03 09:37] MED LIST changes: +AMOX-1000 PO; +BENZ200C4 PO
[2023-08-03 10:08] VITALS: BP 130/61; PULSE 92; RESP 18; TEMP 99.5; O2SAT 97
[2023-08-03] MEDS ORDERED: PROCHLORPERAZINE 10 MG/2 ML VIAL IVP ONE (10:40)
[2023-08-03] MEDS ORDERED: diphenhydrAMINE 50 MG/ML VIAL IVP ONE (10:40)
[2023-08-03] MEDS ORDERED: KETOROLAC 30 MG/ML VIAL IVP ONE (10:40)
[2023-08-03] MEDS ORDERED: ACETAMINOPHEN 325 MG TAB PO ONE (10:40)
[2023-08-03 11:30] LABS: BASOPHILS % (AUTO) 0.5 % (0.0-2.0); EOSINOPHILS # (AUTO) 0.1 K/uL (0-0.4); EOSINOPHILS % (AUTO) 1.7 % (0.0-4.0); HEMATOCRIT 42.3 % (36-52); HEMOGLOBIN 14.4 g/dL (12.0-18.0); LYMPHOCYTES # (AUTO) 0.9 K/uL (2.0-11.5); LYMPHOCYTES % (AUTO) 14.4 % (20.5-51.1); MEAN CORPUSCULAR HEMOGLOBIN 30 pg (27-31); MEAN CORPUSCULAR HGB CONC 34 g/dL (33-37); MEAN CORPUSCULAR VOLUME 87.5 fL (80-94); MONOCYTES % (AUTO) 15.6 % (1.7-9.3); NEUTROPHILS # (AUTO) 4.3 K/uL (1.8-7.7); NEUTROPHILS % (AUTO) 67.8 % (42.2-75.2); PLATELET COUNT (AUTO) 227 K/uL (140-450); RED BLOOD CELL COUNT(AUTO) 4.83 MIL/uL (4.20-6.10); RED CELL DISTRIBUTION WIDTH 13.3 % (11.6-13.7); WHITE BLOOD COUNT (AUTO) 6.4 K/uL (4.8-10.8)
[2023-08-03 12:42] VITALS: O2SAT 97
[2023-08-03 12:50] LABS: ANION GAP 15.4 (8-16); CALCIUM 8.6 mg/dL (8.5-10.1); CARBON DIOXIDE 25.3 mmol/L (21-32); CHLORIDE 104 mmol/L (98-107); CREATININE 0.9 mg/dL (0.6-1.3); GFR ARICAN-AMERICAN 114 mL/min (>90); GFR NON ARICAN-AMERICAN 94 mL/min (>90); GLUCOSE 106 mg/dL (74-106); POTASSIUM 3.7 mmol/L (3.5-5.1); SODIUM SERUM 141 mmol/L (136-145); UREA NITROGEN, BLOOD 16 mg/dL (7-18)
[2023-08-03 12:51] LABS: ALANINE AMINOTRANSFERASE 36 U/L (12-78); ALBUMIN 4.1 g/dL (3.4-5.0); ALKALINE PHOSPHATASE 103 U/L (50-136); ASPARTATE AMINOTRANSFERASE 20 U/L (15-37); TOTAL BILIRUBIN 0.4 mg/dL (0.0-1.0); TOTAL PROTEIN, SERUM 7.5 g/dL (6.4-8.2)
[2023-08-03] MEDS ORDERED: ASPIRIN 325 MG TAB PO ONE (13:05)
[2023-08-03] MEDS ORDERED: NITROGLYCERIN 0.4 MG TAB SL ONE (13:05)
[2023-08-03 13:33] VITALS: BP 133/66; PULSE 89; RESP 14; TEMP 98.3
[2023-08-03 14:41] VITALS: O2SAT 97
== END 2023-08-03 15:27 | disposition home or self-care (01) ==
LOC: MED 09:37
DX: R07.9 Chest pain, unspecified (principal); R79.89 Other specified abnormal findings of blood chemistry; R51.9 Headache, unspecified; Z79.899 Other long term (current) drug therapy
CPT/HCPCS: 70450; 71045; 80053; 84484; 85025; 93005; 96374; 96375; 99285; J0780; J1200; J1885